=== PATIENT | female | born 1985 | race Caucasian/White ===

== ENCOUNTER 2017-04-01 15:08 | Emergency (ER) | payer MEDICAID ==
[2017-04-01 15:46] LABS: BASOPHILS % (AUTO) 0.2 %; EOSINOPHILS # (AUTO) 0.2 10^3/uL (0.0-0.7); EOSINOPHILS % (AUTO) 1.7 %; HCT - HEMATOCRIT 44.9 % (37.0-47.0); HGB - HEMOGLOBIN 15.4 g/dL (12.0-16.0); LYMPHOCYTES # (AUTO) 2.6 10^3/uL (1.5-3.5); MEAN CORPUSCULAR HGB CONC 34.3 g/dL (32.0-36.0); MEAN CORPUSCULAR VOLUME 90.4 fL (81.0-99.0); MEAN PLATELET VOLUME 9.6 fL (7.9-10.8); MONOCYTES # (AUTO) 0.5 10^3/uL (0.0-1.0); NEUTROPHILS # (AUTO) 7.4 10^3/uL (1.5-6.6); NEUTROPHILS % (AUTO) 69.1 %; RED BLOOD COUNT 4.96 10^6/uL (4.20-5.40); RED CELL DISTRIBUTION WIDTH 13.3 % (12.0-15.0); UNCORRECTED WHITE BLOOD COUNT 10.7 x10^3/uL; WHITE BLOOD COUNT 10.7 x10^3/uL (4.8-10.8)
[2017-04-01 15:56] LABS: BILIRUBIN,URINE NEGATIVE (NEGATIVE)
[2017-04-01 16:01] LABS: HCG UR QUAL NEGATIVE; UA CHARGE (STRIP ONLY) YES; UR CULTURE IF IND NOT INDICATED
[2017-04-01 16:02] LABS: ALBUMIN/GLOBULIN RATIO 1.2 (1.0-2.2); BILIRUBIN,TOTAL 0.6 mg/dL (0.2-1.0); CALCIUM 9.3 mg/dL (8.5-10.3); CREATININE 0.8 mg/dL (0.4-1.0); POTASSIUM 3.9 mmol/L (3.5-5.0); TOTAL PROTEIN 7.9 g/dL (6.7-8.2)
--- NOTE | 2017-04-01 16:22 | ED Physician Documentation ---
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 denies: Nausea, Vomiting, Diarrhea : reports: Vaginal bleeding, Control (tubal) Endocrine: denies: Easy bruising / bleeding Immunocompromised: denies: Immunocompromised PD PAST MEDICAL HISTORY - Past Medical History Past Medical History: No - Past Surgical History Past Surgical History: Yes /TECHNOLOGY INTERN: section, Tubal ligation - Present Medications Home Medications: Ambulatory Orders Medication Instructions Recorded Confirmed Doxycycline Hyclate 100 mg PO BID #27 capsule 04/01/17 - Allergies Allergies/Adverse Reactions: Allergies Allergy/AdvReac Type Severity Reaction Status Date / Time acetaminophen [From Tylenol] Allergy Unknown Verified 04/01/17 15:20 - Social History Does the pt smoke?: Yes Smoking Status: Current every day smoker Does the pt drink ETOH?: No Does the pt have substance abuse?: No - Immunizations Immunizations are current?: Yes - POLST Patient has POLST: No PD ED PE NORMAL - Vitals Vital signs reviewed: Yes - Cardiac Cardiac: RRR - Respiratory Respiratory: No respiratory distress, Clear bilaterally - Abdomen Abdomen: Soft, Other (diffuse TTP most severe RUQ and pelvic region R > L, no rebound or guarding) - Female 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), Other (exam painful but +/1 specifically CMT, no dc, no bleeding, no lesions, wet prep GC chlamudia cx done) - Derm Derm: Normal color - Neuro Neuro: Alert and oriented X 3 Results - Vitals Vitals: Vital Signs - 24 hr 04/01/17 15:15 Temperature 36.7 C Heart Rate 96 Respiratory 18 Rate Blood Pressure 116/82 H O2 Saturation 96 Oxygen O2 Source Room air - Labs Labs: Laboratory Tests 04/01/17 04/01/17 04/01/17 15:39 15:39 15:39 WBC 10.7 RBC 4.96 Hgb 15.4 Hct 44.9 MCV 90.4 MCH 31.0 MCHC 34.3 RDW 13.3 Plt Count 160 MPV 9.6 Neut # 7.4 H Lymph # 2.6 [place] # 0.5 Eos # 0.2 Baso # 0.0 Absolute Nucleated RBC 0.00 Nucleated RBC % 0.0 Sodium 136 Potassium 3.9 Chloride 102 Carbon Dioxide 20 L Anion Gap 14.0 H BUN 9 Creatinine 0.8 Estimated GFR (MDRD) 83 L Glucose 104 H Calcium 9.3 Total Bilirubin 0.6 AST 22 ALT 21 Alkaline Phosphatase 52 Total Protein 7.9 Albumin 4.3 Globulin 3.6 Albumin/Globulin Ratio 1.2 Lipase 42 Serum HCG, Qual NEGATIVE Urine Color Urine Clarity Urine pH Ur Specific [place] Urine Protein Urine Glucose (UA) Urine Ketones Urine Occult Blood Urine Nitrite Urine Bilirubin Urine Urobilinogen Ur Leukocyte Esterase Ur Microscopic Review Urine Culture Comments Urine HCG, Qual 04/01/17 15:47 WBC RBC Hgb Hct MCV MCH MCHC RDW Plt Count MPV Neut # Lymph # [place] # Eos # Baso # Absolute Nucleated RBC Nucleated RBC % Sodium Potassium Chloride Carbon Dioxide Anion Gap BUN Creatinine Estimated GFR (MDRD) Glucose Calcium Total Bilirubin AST ALT Alkaline Phosphatase Total Protein Albumin Globulin Albumin/Globulin Ratio Lipase Serum HCG, Qual Urine Color YELLOW Urine Clarity CLEAR Urine pH 6.0 Ur Specific [place] 1.020 Urine Protein NEGATIVE Urine Glucose (UA) NEGATIVE Urine Ketones NEGATIVE Urine Occult Blood NEGATIVE Urine Nitrite NEGATIVE Urine Bilirubin NEGATIVE Urine Urobilinogen 0.2 (NORMAL) Ur Leukocyte Esterase NEGATIVE Ur Microscopic Review NOT INDICATED Urine Culture Comments NOT INDICATED Urine HCG, Qual NEGATIVE PD MEDICAL DECISION MAKING - ED course ED course: worsening pelvic pain for nearly a month with spotting and some dc HCG neg - not ectopic UA neg not UTI/pyelo nl LFTs renal fxn etc nl GB kidneys ovaries, uterus and appendix region on sono (appendix not seen but not secondary signs and progression over 2 weeks would be atypical of appy) given vag dc and some CMT on exam suspect PID though no sig dc seen will tx pt in a lot of pain after TV sono and pelvic exam - gave an oxycodone in ED but not rx to go Departure - Departure Disposition: 01 Home, Self Care Clinical Impression: PID (acute pelvic inflammatory disease) Condition: Good Instructions: ED PID Follow-Up: Maureen Mcnally DO [Provider Admit Priv/Credential] - Prescriptions: Doxycycline Hyclate 100 mg PO BID #27 capsule Comments: The test was negative The urine was not infected You labs were fine (normal kidney and liver function, no diabetes, not anemic etc) The ultrasound did not show any gallstones or kidney stones, no evidence of appendicitis, , normal ovaries and uterus, no internal bleeding. There was not much discharge on the pelvic exam but your cervic and uterus were very tender so i suspect you have a pelvic infection. I sent cultures to help identify what kind of bacteria might cause the infection. The cultures will take several days to result, so in the mean time we started antibiotics to cover many different possibilities. Take the antibiotics as prescribed. Recommend naproxen as neded for the pain. Please follow up with TECHNOLOGY INTERN for a recheck within a week. Return to the ER if worse Forms: Activity restrictions
--- NOTE | 2017-04-01 17:57 | Ultrasound Preliminary Report ---
Exam: US ABDOMEN COMPLETE IMPRESSION: 1. No gallstones or findings of acute cholecystitis. 2. Appendix not seen. No secondary signs of acute appendicitis. 3. No hydronephrosis or abnormal fluid collection. [facility] SITE ID: [id number]
--- NOTE | 2017-04-01 18:00 | Ultrasound Report ---
EXAM: ABDOMEN ULTRASOUND EXAM DATE: 04/01/2017 05:36 PM. CLINICAL HISTORY: Diffuse abd pain, most severe RUQ RLQ. COMPARISON: None. TECHNIQUE: Real-time scanning was performed with static images obtained. FINDINGS: Liver: Normal in size and echotexture. 14.2 cm. Main portal vein flow: Hepatopetal. Gallbladder: No gallstones. Gallbladder wall thickness is normal. Negative ultrasound Traore's sign. Gallbladder wall contour is somewhat irregular and of doubtful significance. Biliary System: Common bile duct measures 3.2 mm. No intrahepatic or extrahepatic ductal dilatation. Pancreas: Not well seen Kidneys: Right: 11.3 cm longitudinally. Normal. No contour-deforming mass, stones, or hydronephrosis. Left: 11.1 cm longitudinally. Normal. No contour-deforming mass, stones, or hydronephrosis. Spleen: 12.1 x 5.6 x 5.0 cm. volume 177 cc. Aorta and Inferior Vena Cava: Unremarkable. Other: Right lower quadrant ultrasound was performed. The appendix is not seen. The patient tolerated compression. No free fluid or thickened bowel seen. IMPRESSION: 1. No gallstones or findings of acute cholecystitis. 2. Appendix not seen. No secondary signs of acute appendicitis. 3. No hydronephrosis or abnormal fluid collection. [facility] Referring Provider Line: [phone] SITE ID: [id number]
--- NOTE | 2017-04-01 18:02 | Ultrasound Preliminary Report ---
Exam: US PEL NON OB W/TV + DOP IMPRESSION: Negative pelvic ultrasound. [facility] SITE ID: [id number]
--- NOTE | 2017-04-01 18:05 | Ultrasound Report ---
EXAM: PELVIC ULTRASOUND EXAM DATE: 04/01/2017 05:36 PM. CLINICAL HISTORY: Abd pain. COMPARISON: None. TECHNIQUE: Realtime transabdominal pelvic scan performed to identify the uterus and adnexa and as an overview of other pelvic structures, followed by transvaginal scan to provide greater detail of the u terus and adnexa, with static image documentation. FINDINGS: Uterus: 8.2 x 3.2 x 5 cm, volume 68 cc. Anteverted position. Normal overall size and echotexture. Masses: None. Endometrium: 7.9 mm. Normal. Cervix: There are small nabothian cysts. Right Ovary: 2.6 x 1.3 x 1.8 cm, volume 3.1 cc. Normal echotexture and blood flow. Left Ovary: 4.0 x 2.3 x 2.8 cm, volume 13.4 cc. Normal echotexture and blood flow. Free Fluid: None. Other: None. IMPRESSION: Negative pelvic ultrasound. [facility] Referring Provider Line: [phone] SITE ID: [id number]
[2017-04-01] MEDS ORDERED: DOXYCYCLINE 100 MG TABLET PO STA (18:10)
[2017-04-01] MEDS ORDERED: cefTRIAXone 250 MG VIAL IM STA (18:10)
[2017-04-01] MEDS ORDERED: IBUPROFEN 400 MG TABLET PO STA (18:11)
[2017-04-01] MEDS ORDERED: oxyCODONE 5 MG TABLET PO STA (18:11)
[2017-04-01] MEDS ORDERED: LIDOCAINE 1% 2 ML VIAL ONE (18:27)
[2017-04-01 18:34] VITALS: BP 121/76
== END 2017-04-01 18:42 | disposition home or self-care (01) ==
LOC: ED 15:08
DX: N73.0 Acute parametritis and pelvic cellulitis (principal); F17.200 Nicotine dependence, unspecified, uncomplicated
CPT/HCPCS: 36415; 76700; 76830; 76856; 80053; 81003; 81025; 83690; 84703; 85025; 87210; 87491; 87591; 93975; 96372; 99283; A9270; 81001; 87086